=== PATIENT | female | born 1995 | race Two or more races ===

== ENCOUNTER 2016-06-12 14:34 | Emergency (ER) | payer OTHER ==
[~2016-06-12] VITALS: Ht 167.6 cm; Wt 49.9 kg
[2016-06-12 15:00] VITALS: BP 111/61
== END 2016-06-12 15:24 | disposition home or self-care (01) ==
LOC: ER 14:36
DX: J06.9 Acute upper respiratory infection, unspecified (principal); F17.200 Nicotine dependence, unspecified, uncomplicated
CPT/HCPCS: 99281; A4606; Z7610; Z7502

== ENCOUNTER 2016-08-09 12:32 | Emergency (ER) | payer OTHER ==
[~2016-08-09] VITALS: Ht 167.6 cm; Wt 49.9 kg
[2016-08-09 12:45] VITALS: BP 104/71
== END 2016-08-09 13:20 | disposition home or self-care (01) ==
LOC: ER 12:34
DX: H57.8 Other specified disorders of eye and adnexa (principal); F17.200 Nicotine dependence, unspecified, uncomplicated
CPT/HCPCS: 99283; 99406; A4606; Z7610

== ENCOUNTER 2016-09-19 14:32 | Emergency (ER) | payer OTHER ==
[~2016-09-19] VITALS: Ht 167.6 cm; Wt 52.2 kg
[2016-09-19 14:41] VITALS: BP 137/85
== END 2016-09-19 15:33 | disposition home or self-care (01) ==
LOC: ER 14:37
DX: T78.40XA Allergy, unspecified, initial encounter (principal); H57.8 Other specified disorders of eye and adnexa; F17.200 Nicotine dependence, unspecified, uncomplicated
CPT/HCPCS: A4606; Z7610